=== PATIENT | male | born 1950 | race Asian ===

== ENCOUNTER 2019-09-27 13:49 | Emergency (ER) | payer BC, OTHER ==
[~2019-09-27] VITALS: Ht 162.6 cm; Wt 61.2 kg
--- NOTE | 2019-09-27 14:53 | NUR ---
PATIENT AMBULATED WITH STEADY GAIT TO BED 4.
--- NOTE | 2019-09-27 14:54 | NUR ---
AMB TO BED 04
[2019-09-27 14:55] VITALS: BP 122/89
--- NOTE | 2019-09-27 15:04 | NUR ---
DR VILLALTA EVALUATING PT AT BEDSIDE
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
[2019-09-27] MEDS ORDERED: LEVOFLOXACIN 750 MG TAB PO ONE (15:20)
[2019-09-27] MEDS ORDERED: CLINDAMYCIN 150 MG CAP PO ONE (15:20)
--- NOTE | 2019-09-27 15:55 | NUR ---
Patient discharged with v/s stable. Written and verbal after care instructions given and explained. Patient alert, oriented and verbalized understanding of instructions. Ambulatory with steady gait. All questions addressed prior to discharge. ID band removed. Patient advised to follow up with PMD. Rx of MOTRIN, LEVAQUIN, AND CLINDAMYCIN given. Patient educated on indication of medication including possible reaction and side effects. Opportunity to ask questions provided and answered.
[2019-09-27 15:56] VITALS: BP 122/89
== END 2019-09-27 15:55 | disposition home or self-care (01) ==
LOC: MED 13:49
DX: M79.641 Pain in right hand (principal); W56.81XA Bitten by other nonvenomous marine animals, initial encounter; Y93.89 Activity, other specified; Y92.89 Other specified places as the place of occurrence of the external cause; Y99.8 Other external cause status
CPT/HCPCS: 90471; 90715; 99283

== ENCOUNTER 2023-11-03 17:42 | Emergency (ER) | payer BC, OTHER ==
[~2023-11-03] VITALS: Ht 175.3 cm; Wt 78.0 kg
[2023-11-03 17:49] VITALS: BP 148/88; PULSE 123; RESP 18; TEMP 98.6; O2SAT 95
[2023-11-03 18:19] VITALS: BP 168/83; PULSE 128; RESP 18; TEMP 98.6; O2SAT 98
[2023-11-03 18:28] LABS: APPEARANCE,URINE CLEAR (CLEAR); BILIRUBIN,URINE NEGATIVE (NEGATIVE); BLOOD, URINE 1+ (NEGATIVE); COLOR,URINE YELLOW (YELLOW); LEUKOCYTE ESTERASE ,URINE NEGATIVE (NEGATIVE); NITRITE, URINE NEGATIVE (NEGATIVE); PROTEIN,URINE NEGATIVE (NEGATIVE); UGLUCOSE NEGATIVE (NEGATIVE); UROBILINOGEN,URINE 0.2 EU/dL (0.2 - 1)
[2023-11-03 18:54] LABS: BASOPHILS # (AUTO) 0.1 K/uL (0.00-0.22); BASOPHILS % (AUTO) 0.8 % (0.0-2.0); EOSINOPHILS # (AUTO) 0.1 K/uL (0-0.4); EOSINOPHILS % (AUTO) 1.1 % (0.0-4.0); HEMATOCRIT 41.6 % (36-52); HEMOGLOBIN 14.5 g/dL (12.0-18.0); LYMPHOCYTES # (AUTO) 2.2 K/uL (2.0-11.5); LYMPHOCYTES % (AUTO) 19.2 % (20.5-51.1); MEAN CORPUSCULAR HEMOGLOBIN 30 pg (27-31); MEAN CORPUSCULAR HGB CONC 35 g/dL (33-37); MEAN CORPUSCULAR VOLUME 86.6 fL (80-94); MONOCYTES % (AUTO) 8.9 % (1.7-9.3); NEUTROPHILS # (AUTO) 7.9 K/uL (1.8-7.7); PLATELET COUNT (AUTO) 282 K/uL (140-450); RED CELL DISTRIBUTION WIDTH 13.4 % (11.6-13.7); WHITE BLOOD COUNT (AUTO) 11.3 K/uL (4.8-10.8)
[2023-11-03 18:57] LABS: WBC,URINE 0-5 /HPF (0-5)
[2023-11-03 18:58] LABS: BACTERIA,URINE FEW /HPF (None Seen); MUCUS,URINE None Seen /LPF (None Seen); SQUAMOUS EPITHELIAL CELL,UR 0-3 (FEW) /LPF (0-3 (FEW)); TRICHOMONAS,URINE None Seen /HPF (None Seen); WHITE BLOOD CELL CASTS,URINE None Seen /LPF (None Seen); YEAST,URINE None Seen /HPF (None Seen)
[2023-11-03] MEDS: KETOROLAC 30 MG/ML VIAL IVP ONE (18:59)
[2023-11-03 19:06] LABS: ANION GAP 12.8 (8-16); CALCIUM 9.5 mg/dL (8.5-10.1); CARBON DIOXIDE 27.6 mmol/L (21-32); CHLORIDE 97 mmol/L (98-107); CREATININE 1.1 mg/dL (0.6-1.3); GLUCOSE 118 mg/dL (74-106); POTASSIUM 3.4 mmol/L (3.5-5.1); SODIUM SERUM 134 mmol/L (136-145); UREA NITROGEN, BLOOD 11 mg/dL (7-18)
[2023-11-03] MEDS ORDERED: CIPR500T4 PO (19:11)
[2023-11-03] MEDS ORDERED: IBUP-2213 PO (19:11)
[2023-11-03] MEDS ORDERED: METR-435 PO (19:11)
[2023-11-03 19:12] LABS: ALBUMIN 3.5 g/dL (3.4-5.0); BILIRUBIN,DIRECT 0.1 mg/dL (0.0-0.3); TOTAL BILIRUBIN 0.7 mg/dL (0.0-1.0)
== END 2023-11-03 19:21 | disposition home or self-care (01) ==
LOC: MED 17:42
DX: K57.92 Diverticulitis of intestine, part unspecified, without perforation or abscess without bleeding (principal); I10 Essential (primary) hypertension; Z79.899 Other long term (current) drug therapy
CPT/HCPCS: 36415; 74176; 80048; 80076; 81001; 83690; 85025; 96374; 99285; J1885

== ENCOUNTER 2024-01-25 17:31 | Emergency (ER) | payer BC, OTHER ==
[~2024-01-25] VITALS: Ht 175.3 cm; Wt 77.1 kg
[~2024-01-25 17:31] MED LIST: CIPR500T4 PO; IBUP-2213 PO; METR-435 PO
[2024-01-25 17:33] VITALS: BP 116/56; PULSE 114; RESP 21; TEMP 98.9; O2SAT 92
[2024-01-25] MEDS ORDERED: methylPREDNISolone SS 125 MG in WATER STERILE 2 ML IV ONE (17:45)
[2024-01-25] MEDS: FAMOTIDINE 20 MG/2 ML VIAL IVP ONE (17:54)
[2024-01-25] MEDS: diphenhydrAMINE 50 MG/ML VIAL IVP ONE (17:54)
[2024-01-25] MEDS: EPINEPHrine 1 MG/ML AMP IM ONE (17:58)
[2024-01-25 18:08] LABS: HEMATOCRIT 44.2 % (36-52); HEMOGLOBIN 15.4 g/dL (12.0-18.0); MEAN CORPUSCULAR HEMOGLOBIN 30 pg (27-31); MEAN CORPUSCULAR HGB CONC 35 g/dL (33-37); MEAN CORPUSCULAR VOLUME 87.2 fL (80-94); PLATELET COUNT (AUTO) 333 K/uL (140-450); RED BLOOD CELL COUNT(AUTO) 5.07 MIL/uL (4.20-6.10); RED CELL DISTRIBUTION WIDTH 13.4 % (11.6-13.7); WHITE BLOOD COUNT (AUTO) 6.6 K/uL (4.8-10.8)
[2024-01-25 18:23] LABS: ANION GAP 15.1 (8-16); CALCIUM 9.6 mg/dL (8.5-10.1); CARBON DIOXIDE 25.5 mmol/L (21-32); CHLORIDE 100 mmol/L (98-107); CREATININE 1.2 mg/dL (0.6-1.3); GLUCOSE 149 mg/dL (74-106); POTASSIUM 3.6 mmol/L (3.5-5.1); SODIUM SERUM 137 mmol/L (136-145); UREA NITROGEN, BLOOD 21 mg/dL (7-18)
[2024-01-25 18:32] LABS: MONOCYTES % (MANUAL) 6 % (5-12)
[2024-01-25 18:33] LABS: EOSINOPHILS % (MANUAL) 1 % (0-4); LYMPHOCYTES % (MANUAL) 62 % (20-46)
[2024-01-25 18:34] LABS: MYELOCYTES % 1 % (0-0)
[2024-01-25 18:35] LABS: ANISOCYTOSIS 1+; SPHEROCYTES 1+; TEAR DROP CELLS 1+
[2024-01-25 18:36] VITALS: PULSE 98; RESP 22; O2SAT 98; O2SAT 99
[2024-01-25] MEDS: NACL 0.9% 1,000 ML IV ONE (18:36)
[2024-01-25] MEDS: ALBUTEROL SULFATE/IPRATROPIU 3 ML SOL IH ONE (18:44)
[2024-01-25] MEDS: methylPREDNISolone SS 125 MG/2 ML VIAL IVP ONE (19:13)
[2024-01-25 20:14] VITALS: O2SAT 99
[2024-01-25 22:34] VITALS: BP 119/66; PULSE 96; RESP 22; TEMP 98.9; O2SAT 94; O2SAT 99
[2024-01-25] MEDS ORDERED: ALBU0.0912 IH (23:38)
[2024-01-25] MEDS ORDERED: EPIN1KIT31 IM (23:38)
[2024-01-25] MEDS ORDERED: PRED20TA5 PO (23:38)
== END 2024-01-25 23:59 | disposition home or self-care (01) ==
LOC: MED 17:31
DX: T78.2XXA Anaphylactic shock, unspecified, initial encounter (principal); T78.49XA Other allergy, initial encounter; X58.XXXA Exposure to other specified factors, initial encounter; I10 Essential (primary) hypertension; Z79.899 Other long term (current) drug therapy
CPT/HCPCS: 36415; 36600; 71045; 71275; 80048; 83880; 84484; 85025; 93005; 94640; 96361; 96372; 96374; 96375; 99291; J0171; J1200; J2930; J3490; J7030; Q9967